=== PATIENT | female | born 1980 | race Hispanic/Latino ===

== ENCOUNTER 2017-06-23 14:18 | Inpatient (IN) | payer OTHER ==
[~2017-06-23] VITALS: Ht 154.9 cm; Wt 58.6 kg
[2017-06-23 15:50] LABS: BASO # 0.1 10^3/uL (0.0-0.2); BASO % 0.4 % (0.0-1.0); EOS # 0.5 10^3/uL (0.0-0.50); EOS % 3.7 % (0.0-3.0); IMMATURE GRANULOCYTE % 0.5 % (0-0); LYMPH # 1.6 10^3/uL (1.5-4.5); LYMPH % 11.5 % (24.0-44.0); MEAN CORPUSCULAR HEMOGLOBIN 30.2 pg (27.0-33.0); MEAN CORPUSCULAR HGB CONC 34.2 g/dl (32.0-36.5); MEAN CORPUSCULAR VOLUME 88.4 fl (80.0-96.0); MONO % 7.3 % (0.0-5.0); NEUTROPHILS # 10.8 10^3/uL (1.8-7.7); NEUTROPHILS % 76.6 % (36.0-66.0); PLATELET COUNT, AUTOMATED 344 10^3/uL (150-450); RED CELL DISTRIBUTION WIDTH 12.3 % (11.5-14.5); WHITE BLOOD COUNT 14.2 10^3/uL (4.0-10.0)
[2017-06-23 16:06] LABS: CONTROL LINE HCG INT CTR LINE PRESENT
[2017-06-23 16:14] LABS: ALKALINE PHOSPHATASE 136 U/L (45-117); ALT/SGPT 86 U/L (12-78); AMYLASE 63 U/L (25-115); ANION GAP 8 MEQ/L (8-16); AST/SGOT 84 U/L (7-37); BILIRUBIN,TOTAL 1.1 MG/DL (0.2-1.0); BLOOD UREA NITROGEN 10 MG/DL (7-18); CALCIUM LEVEL 9.3 MG/DL (8.5-10.1); CARBON DIOXIDE LEVEL 27 MEQ/L (21-32); CHLORIDE LEVEL 103 MEQ/L (98-107); CREATININE FOR GFR 0.75 MG/DL (0.55-1.02); GLOMERULAR FILTRATION RATE > 60.0 (>60); GLUCOSE, FASTING 116 MG/DL (70-105); POTASSIUM SERUM 4.2 MEQ/L (3.5-5.1); SODIUM LEVEL 138 MEQ/L (136-145)
--- NOTE | 2017-06-23 16:24 | REP ---
Clinical: Acute abdominal pain. Technique: Olvera scale ultrasound using curved array transducer. Findings: The gallbladder is contracted with at least two 9 mm gallstones and evidence for positive sonographic Guzman's sign with suggestions for minimal pericholecystic fluid. No biliary ductal dilatation is appreciated, and the common bile duct measures 5.0 mm diameter. The liver demonstrates fatty infiltration without focal hepatic lesion identified. The pancreas is normal in contour, size, and echogenicity without focal pancreatic lesion identified. The right kidney is normal in reniform shape without hydronephrosis and measures 11.4 x 5.4 x 5.0 cm. No ascites. Visualized portions of the abdominal aorta normal. Impression: 1. Sonographic findings suggestive of acute cholecystitis and correlation is recommended. 2. Fatty infiltration to the liver. Signed by Anup De La Rosa MD 06/23/2017 04:16 P
[2017-06-23 17:45] LABS: BILIRUBIN,DIRECT 0.2 MG/DL (0.0-0.2)
--- NOTE | 2017-06-23 17:46 | REP ---
Clinical: Right-sided abdominal pain and hematuria. Findings: Lung bases demonstrate minimal lingular atelectasis and a small 7 mm noncalcified nodular density in the right lower lobe (images 1 - 4). Liver, spleen, pancreas, bilateral adrenal glands and kidneys are normal. Specifically, no perinephric stranding, hydroureteronephrosis, intrarenal or obstructing ureteral calculi are identified. The gallbladder is unremarkable by CT evaluation. The enteric system is without obstruction or acute inflammatory process. Evidence for prior appendectomy noted. Sigmoid diverticula noted without acute diverticulitis. This demonstrates normal bladder and age-appropriate uterus/adnexa. No pelvic fluid or ascites. No free air. No significant adenopathy. Abdominal aorta without aneurysm. Musculoskeletal structures are intact. Impression: 1. Trace lingular atelectasis and 7 mm noncalcified nodular density in the right lower lobe warrants followup examination in 3-6 months. 2. No acute abdominopelvic pathology by CT evaluation. Specifically, normal appearance to the kidneys/ureters and bladder. Normal CT appearance to the gallbladder. 3. No ascites. No adenopathy. No obvious mass. Signed by Anup De La Rosa MD 06/23/2017 05:38 P
[2017-06-24] VITALS (8 sets, daily range): BP systolic 108–131; BP diastolic 62–77
[2017-06-24] MEDS ORDERED: MORPHINE 2 MG/ML 1ML SYRINGE IV PRN (01:15)
[2017-06-24] MEDS ORDERED: ACETAMINOPHEN TAB 650MG DOSE (2X325MG) PO PRN (01:15)
[2017-06-24] MEDS ORDERED: ONDANSETRON 4MG/2ML VIAL (J2405) IV PRN ×2 (01:15→15:45)
[2017-06-24] MEDS ORDERED: KETOROLAC 30 MG/ML VIAL (J1885) IV PRN (01:15)
[2017-06-24] MEDS ORDERED: LR 1,000 ML IV SCH ×2 (01:15→15:45)
--- NOTE | 2017-06-24 02:02 | HPE ---
DATE OF ADMISSION: 06/24/2017 ADMITTING DIAGNOSIS: Cholelithiasis with acute cholecystitis. HISTORY OF PRESENT ILLNESS: The patient is a pleasant 36-year-old woman who presented to the emergency department on the afternoon of 06/23. She arrived at approximately 1418. She presented complaining of some right flank pain that had started on the evening of the . She described that the pain started in the evening at about 2000 hours on the . She did not note any significant nausea or vomiting. During the course of the overnight hours, her pain was persistent and worsened in severity. She noted some movement of the pain into the right subcostal area. She noted increased pain with deep breath. She described a constant pain, but also occasional sharper pains. She presented to the emergency department and on evaluation was found to have some tenderness in the right subcostal area. She had laboratory studies that showed an elevation of her white blood cell count to 14,000 and had a gallbladder ultrasound obtained that showed multiple stones within a somewhat contracted gallbladder. She then had a CT scan of the abdomen and pelvis, which revealed evidence for a prior appendectomy. She had no evidence of renal stones. The gallbladder was unremarkable by CT evaluation. Incidentally noted was some mild lingular atelectasis and a 7 mm noncalcified nodular density in the right lower lobe. The patient had persistent pain and I was asked to evaluate the patient. Unfortunately, there were several urgent surgeries that took precedence and she was delayed in the emergency department for several hours until I had a chance to see her. In the interim, she has developed a low-grade temperature to 100.3 and has not had any resolution of her discomfort. She is now being admitted for management of her acute cholecystitis. ALLERGIES: The patient denies any known drug allergies. MEDICATIONS: The patient is on no medications routinely. SURGICAL HISTORY: Significant for an appendectomy. She has had a laparoscopy related to in vitro fertilization and she has had a section. MEDICAL HISTORY: Significant for a history of some gastroesophageal reflux. She reports that she used to take Nexium routinely, but this did not seem to relieve her symptoms adequately and now she just tries harder to avoid those foods that she knows will cause symptoms. She denies any heart, lung or endocrine problems. SOCIAL HISTORY: The patient is a nonsmoker and denies any significant alcohol use. FAMILY HISTORY: Reveals no history of cholelithiasis. REVIEW OF SYSTEMS: Reveals no history of chest pain or palpitations. She has had no dysuria or hematuria. She denies any history of jaundice, acholic stools, hepatitis or pancreatitis. She did report developing some left hip pain, which also began on the evening of the . She does use a treadmill for exercise, but has not had problems before. She has no history of deep venous thrombosis (DVT) or pulmonary embolus. There is no history of seizure, stroke or chronic severe headaches. Remainder of the review of systems is unremarkable. PHYSICAL EXAMINATION: Reveals a pleasant woman lying quietly on the emergency room (ER) stretcher. She is still wearing her clothes and is wearing her jacket because she feels cold. Her most recent vital signs show a temperature of 100.3 with a pulse of 92, respirations of 20 and a blood pressure of 130/78. Room air saturation is 100%. Sclerae are anicteric. Mucous membranes are moist. The skin is warm and dry. Neck is supple without mass or bruit. Heart exam shows a regular rate and rhythm. The lungs are clear. The abdomen is soft. She has some scarring consistent with her prior surgical procedures. She has bowel sounds present. The abdomen is nondistended. There is tenderness to percussion in the right subcostal area at about the midclavicular line. On palpation, there is no mass appreciated, but her point of maximum tenderness is in this right subcostal area, again at about the level of the midclavicular line. Her tenderness would seem to be moderate in severity. There is no sign of hernia. Extremities are without edema. LABORATORY STUDIES: Which are now 9 hours old showed a white count of 14,000 with a differential showing 77% neutrophils, 12% lymphocytes and 7 monocytes. Hemoglobin is 13 with a hematocrit of 39 and a platelet count is 344,000. Chemistry profile shows normal electrolytes with a BUN of 10, creatinine 0.7 and a glucose of 116. She does have slightly elevated liver function tests with a total bilirubin of 1.1, AST of 84, ALT of 86, and an alkaline phosphatase of 136. Amylase and lipase are normal and her HCG is negative. Her ultrasound and CT scan are as reported in the history of present illness. IMPRESSION: 1. Cholelithiasis with acute cholecystitis. 2. Mild liver function test abnormalities of unclear etiology. 3. History of gastroesophageal reflux. 4. History of infertility. 5. Small right lower lobe nodule incidentally noted on CT scan requiring followup. PLAN: The patient was counseled regarding the diagnosis of cholelithiasis and acute cholecystitis. I have recommended that she be admitted to the hospital for further treatment. She will be started on some intravenous (IV) fluid. She has not received any IV fluid for the last 9 hours, but has not been able to take any liquids either. She will receive a bolus on admission and then her IV rate will be reduced to maintenance levels. She will be started on Unasyn for IV antibiotic coverage. I will allow her to take a few sips of liquids as long as she is not nauseous and these will then be held early in the morning. I will add her to the operating room (OR) schedule for the as an add-on for a laparoscopic cholecystectomy. The timing of this will need to be worked out later in the day. She will be provided with analgesics and antiemetics as needed.
[2017-06-24] MEDS: AMPICILLIN SOD/SULBACTAM SOD 3 GM in D5W MINI-BAG PLUS 100 ML IV SCH ×3 (03:21→13:38)
[2017-06-24 07:08] LABS: BASO % 0.3 % (0.0-1.0); EOS # 0.5 10^3/uL (0.0-0.50); EOS % 3.8 % (0.0-3.0); IMMATURE GRANULOCYTE % 0.5 % (0-0); LYMPH # 1.5 10^3/uL (1.5-4.5); LYMPH % 11.5 % (24.0-44.0); MEAN CORPUSCULAR HEMOGLOBIN 29.9 pg (27.0-33.0); MEAN CORPUSCULAR HGB CONC 34.4 g/dl (32.0-36.5); MEAN CORPUSCULAR VOLUME 86.8 fl (80.0-96.0); MONO % 7.7 % (0.0-5.0); NEUTROPHILS # 10.2 10^3/uL (1.8-7.7); NEUTROPHILS % 76.2 % (36.0-66.0); PLATELET COUNT, AUTOMATED 304 10^3/uL (150-450); RED CELL DISTRIBUTION WIDTH 12.1 % (11.5-14.5); WHITE BLOOD COUNT 13.3 10^3/uL (4.0-10.0)
[2017-06-24 07:28] LABS: ALBUMIN 3.3 GM/DL (3.2-5.2); ALBUMIN/GLOBULIN RATIO 0.89 (1.00-1.93); ALKALINE PHOSPHATASE 104 U/L (45-117); ALT/SGPT 92 U/L (12-78); ANION GAP 8 MEQ/L (8-16); AST/SGOT 70 U/L (7-37); BILIRUBIN,DIRECT 0.2 MG/DL (0.0-0.2); BILIRUBIN,TOTAL 1.5 MG/DL (0.2-1.0); BLOOD UREA NITROGEN 8 MG/DL (7-18); CALCIUM LEVEL 8.8 MG/DL (8.5-10.1); CARBON DIOXIDE LEVEL 25 MEQ/L (21-32); CHLORIDE LEVEL 105 MEQ/L (98-107); CREATININE FOR GFR 0.65 MG/DL (0.55-1.02); GLOMERULAR FILTRATION RATE > 60.0 (>60); GLUCOSE, FASTING 102 MG/DL (70-105); SODIUM LEVEL 138 MEQ/L (136-145)
[2017-06-24] MEDS: LR 1,000 ML IV SCH ×3 (07:50→21:31)
[2017-06-24] MEDS ORDERED: BUPIVACAINE HCL 0.25% 30 ML VIAL As Ordered ONE (13:02)
[2017-06-24] MEDS ORDERED: SCOPOLAMINE 1.5 MG TRANSDERMAL As Ordered ONE (13:03)
[2017-06-24] MEDS ORDERED: UNASYN 1.5 GM VIAL As Ordered ONE (13:15)
[2017-06-24] MEDS ORDERED: SCOPOLAMINE 1.5 MG TRANSDERMAL TOP ONE (13:15)
[2017-06-24] MEDS ORDERED: ROCURONIUM BROMIDE 50 MG/5 ML VIAL As Ordered ONE (14:01)
[2017-06-24] MEDS ORDERED: PROPOFOL 200 MG/20 ML VIAL As Ordered ONE (14:01)
[2017-06-24] MEDS ORDERED: ONDANSETRON 4MG/2ML VIAL (J2405) As Ordered ONE (14:01)
[2017-06-24] MEDS ORDERED: fentaNYL 250 MCG/5 ML INJECTION (J3010) As Ordered ONE (14:01)
[2017-06-24] MEDS ORDERED: GLYCOPYRROLATE INJ 0.2 MG/ML 2 ML VIAL As Ordered ONE (14:01)
[2017-06-24] MEDS ORDERED: NEOSTIGMINE 10 MG/10 ML VIAL (J2710) As Ordered ONE (14:01)
[2017-06-24] MEDS ORDERED: dexameTHASONE 4 MG/ML 1ML VIAL (J1100) As Ordered ONE (14:01)
[2017-06-24] MEDS ORDERED: LIDOCAINE 2% INJ 100 MG/5 ML SDV (FOR ANES.) As Ordered ONE (14:01)
[2017-06-24] MEDS ORDERED: KETOROLAC 60 MG/2 ML VIAL (J1885) As Ordered ONE (14:01)
[2017-06-24] MEDS ORDERED: MIDAZOLAM INJ 2 MG/2 ML VIAL (J2250) As Ordered ONE (14:01)
[2017-06-24] MEDS ORDERED: METOCLOPRAMIDE INJ 10MG/2ML VIAL (J2765) As Ordered ONE (14:02)
[2017-06-24] MEDS ORDERED: HYDROmorphone HCL 2 MG/ML 1ML VIAL (J1170) As Ordered ONE (14:13)
[2017-06-24] MEDS ORDERED: NORCO, ANEXSIA 5/325MG TABLET (HYDROcodone/ACETAMINOPHEN) PO PRN (15:15)
[2017-06-24] MEDS ORDERED: PERCOCET 5MG/325MG TAB PO PRN (15:45)
[2017-06-24] MEDS ORDERED: fentaNYL 100 MCG/2 ML INJECTION (J3010) IV PRN (15:45)
--- NOTE | 2017-06-24 19:32 | RO ---
DATE OF PROCEDURE: 06/24/2017 PREOPERATIVE DIAGNOSIS: Acute cholecystitis. POSTOPERATIVE DIAGNOSIS: Cholelithiasis with chronic cholecystitis and possible mild gallbladder edema. PROCEDURE PERFORMED: Laparoscopic cholecystectomy. SURGEON: Dr. Dat Fermin ANESTHESIA: General. INDICATIONS FOR PROCEDURE: The patient is a 36-year-old woman who presented to the emergency department with a clinical picture and laboratory and imaging findings consistent with acute cholecystitis. She was admitted to the hospital and started on intravenous Unasyn. She is now for a laparoscopic cholecystectomy. DESCRIPTION OF PROCEDURE: The patient was placed under general endotracheal anesthesia. The patient's abdomen was prepped and draped in a sterile fashion. 0.25% Marcaine was infiltrated at each of the trocar sites. A short supraumbilical midline incision was made, and this was deepened through the subcutaneous tissues. The fascia was opened along the midline, and the peritoneum was opened bluntly. A Deric cannula was inserted, and the abdomen was insufflated with carbon dioxide gas. The laparoscope was placed. Initial examination showed a normal appearing liver. The gallbladder was readily seen and did not initially appear acutely inflamed. It was somewhat pale in color but seemed thin-walled. Visualized portions of the small and large bowel appeared normal. A 5 mm trocar was placed in the left upper quadrant and two 5 mm trocars were placed in the right upper quadrant. The patient was tilted to a reverse Trendelenburg position. The gallbladder was grasped and elevated. Dissection was begun in the area of the gallbladder neck. There was perhaps some mild edema in the pericholecystic tissues adjacent to the gallbladder neck. These tissues were opened by using cautery dissection. The common bile duct was identified with the cystic duct arising to the right and extending a short distance to the neck of the gallbladder. Medial to this the arterial branches to the gallbladder were identified. Initially the cystic duct was dissected free and was doubly clipped and divided. With further dissection, the artery branches were then out and clipped with hemoclips and divided. The gallbladder was removed from the gallbladder bed using cautery dissection. The gallbladder was not perforated in the course of dissection. The gallbladder was placed in an Endopouch. The right upper quadrant was irrigated and inspected. There was no evidence of bleeding or bile leak. The abdomen was deflated and the trocars were removed. The gallbladder was recovered through the Deric site. There were some stones palpable within the gallbladder. The peritoneum at the Deric site was closed with a single #2-0 Vicryl. The fascia was closed with interrupted simple sutures of #2-0 Vicryl, and the skin edges were all approximated with buried #5- 0 Vicryl and Steri-Strips. Light dressings were applied. The patient tolerated the procedure well without apparent complication. She was awakened in the operating room, extubated, and taken to the recovery room in stable condition. REGIS
[2017-06-25 02:00] VITALS: BP 117/67
[2017-06-25 06:00] VITALS: BP 114/61
[2017-06-25] MEDS: LR 1,000 ML IV SCH (08:11)
[2017-06-25 08:13] LABS: ALBUMIN 3.1 GM/DL (3.2-5.2); ALBUMIN/GLOBULIN RATIO 0.91 (1.00-1.93); ALKALINE PHOSPHATASE 107 U/L (45-117); ALT/SGPT 91 U/L (12-78); ANION GAP 10 MEQ/L (8-16); AST/SGOT 56 U/L (7-37); BLOOD UREA NITROGEN 7 MG/DL (7-18); CALCIUM LEVEL 9.1 MG/DL (8.5-10.1); CARBON DIOXIDE LEVEL 23 MEQ/L (21-32); CHLORIDE LEVEL 109 MEQ/L (98-107); CREATININE FOR GFR 0.61 MG/DL (0.55-1.02); GLOMERULAR FILTRATION RATE > 60.0 (>60); GLUCOSE, FASTING 107 MG/DL (70-105); SODIUM LEVEL 142 MEQ/L (136-145); TOTAL PROTEIN 6.5 GM/DL (6.4-8.2)
[2017-06-25] MEDS ORDERED: NORCOTAB PO ×2 (14:08→14:16)
--- NOTE | 2017-06-25 14:49 | IPN ---
DATE: 06/25/2017 HISTORY OF THIS HOSPITALIZATION: Patient is now postop day one from a laparoscopic cholecystectomy for acute cholecystitis. At surgery her gallbladder was found to be mildly edematous but not grossly inflamed so her antibiotics were not continued postop. Today she is feeling better though still with some soreness in the right subcostal area as might be expected. She denies any nausea or vomiting. She has been drinking well. Vital signs show she is afebrile with stable vitals. Intake and output shows 1940 in with 830 out yesterday and she had 2000 mL of urine output so far today. Physical exam reveals pleasant woman sitting up in the bed. She is alert and oriented. Heart exam shows a regular rhythm and the lungs are clear. The abdomen is mildly full but she has active bowel sounds. Her dressings are dry and the abdomen is without undue tenderness. LABORATORY DATA: She had repeat chemistry profile today that shows her total bilirubin is down to 1.0 which is normal. AST and ALT are both still slightly elevated at 56 and 91 and the alkaline phosphatase is normal. IMPRESSION: 1. Is doing well one day postop from a laparoscopic cholecystectomy. PLAN: The patient appears to be doing well enough for discharge. She will be sent home today. I will provide her a prescription for Morovis to take on an as-needed basis but she was encouraged to use Tylenol or Advil or other [id number] medications necessary for a lesser pain. She can shower today. 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 I want her to see me back in about 10 days in the office.
== END 2017-06-25 15:50 | disposition home or self-care (01) | DRG 419 ==
LOC: M ED 14:18 → M ED INP 06-24 01:15 → M MS5PR 06-24 02:55
PROVIDERS: ADMIT Surgery; ATTEND Surgery
PROC: 0FT44ZZ Resection of Gallbladder, Percutaneous Endoscopic Approach (ICD-10-PCS; principal; 2017-06-24 13:19)
DX: K80.62 Calculus of gallbladder and bile duct with acute cholecystitis without obstruction (principal); K21.9 Gastro-esophageal reflux disease without esophagitis; R91.1 Solitary pulmonary nodule; N97.9 Female infertility, unspecified

== ENCOUNTER 2017-06-28 14:33 | Emergency (ER) | payer OTHER, BC ==
[~2017-06-28] VITALS: Ht 154.9 cm; Wt 61.4 kg
[~2017-06-28 14:33] MED LIST: NORCOTAB PO
[2017-06-28] MEDS ORDERED: ALBUTEROL SULFATE 2.5 MG/0.5 ML INH NEB SOLN NEB ONE (16:30)
--- NOTE | 2017-06-28 17:05 | REP ---
Chest two views HISTORY: Shortness of breath Comparison: None Linear densities are present in the left lower lobe consistent with atelectasis or scar. The right lung is clear. The heart is normal in size. The pulmonary vasculature is normal in appearance. The bony structure is intact. IMPRESSION: Left lower lobe atelectasis or scar. Signed by David Morgan MD 06/28/2017 04:57 P
[2017-06-28 17:08] LABS: BASO # 0.1 10^3/uL (0.0-0.2); BASO % 0.4 % (0.0-1.0); EOS # 0.7 10^3/uL (0.0-0.50); EOS % 4.7 % (0.0-3.0); IMMATURE GRANULOCYTE % 1.3 % (0-0); LYMPH # 2.7 10^3/uL (1.5-4.5); LYMPH % 19.4 % (24.0-44.0); MEAN CORPUSCULAR HEMOGLOBIN 29.6 pg (27.0-33.0); MEAN CORPUSCULAR HGB CONC 34.2 g/dl (32.0-36.5); MEAN CORPUSCULAR VOLUME 86.7 fl (80.0-96.0); MONO # 0.6 10^3/uL (0.0-0.8); MONO % 4.3 % (0.0-5.0); NEUTROPHILS # 9.8 10^3/uL (1.8-7.7); NEUTROPHILS % 69.9 % (36.0-66.0); PLATELET COUNT, AUTOMATED 478 10^3/uL (150-450)
[2017-06-28 17:28] LABS: ANION GAP 9 MEQ/L (8-16); BLOOD UREA NITROGEN 11 MG/DL (7-18); CALCIUM LEVEL 9.9 MG/DL (8.5-10.1); CARBON DIOXIDE LEVEL 28 MEQ/L (21-32); CHLORIDE LEVEL 101 MEQ/L (98-107); CREATININE FOR GFR 0.72 MG/DL (0.55-1.02); GLOMERULAR FILTRATION RATE > 60.0 (>60); GLUCOSE, FASTING 95 MG/DL (70-105); POTASSIUM SERUM 3.8 MEQ/L (3.5-5.1); SODIUM LEVEL 138 MEQ/L (136-145)
[2017-06-28] MEDS ORDERED: ISOVUE-370 76% 100ML VIAL (Q9967) As Ordered ONE (17:47)
[2017-06-28 18:28] VITALS: O2SAT 98
--- NOTE | 2017-06-28 18:36 | REP ---
CT ANGIO CHEST: HISTORY: Shortness of breath. CONTRAST: Isovue-370 100 mL. There are no filling defects in the main , right and left pulmonary arteries or their branches. Area of atelectasis or infiltrate are present in the lower lobes and left upper lobe. A 5 mm parenchymal nodule is present in the right upper lobe seen on image 26. A 5 mm parenchymal nodule is present in the right lower lobe seen in image #43. Small bilateral pleural effusions are present. The heart is normal in size. There is no mediastinal mass. The patient is status-post cholecystectomy. IMPRESSION: 1. There is no pulmonary embolism. 2. Bibasilar and left lower lobe atelectasis or infiltrate. 3. Small bilateral pleural effusions. 4. There are two 5 mm parenchymal nodules in the right upper and lower lobes. Signed by David Morgan MD 06/28/2017 06:56 P
[2017-06-28] MEDS ORDERED: ZITHTAB PO ×2 (18:42→18:48)
[2017-06-28] MEDS ORDERED: VENTAER INH ×2 (18:42→18:48)
[2017-06-28 18:48] VITALS: BP 112/64
== END 2017-06-28 18:51 | disposition home or self-care (01) ==
LOC: M ED 14:33
DX: J18.9 Pneumonia, unspecified organism (principal); R91.8 Other nonspecific abnormal finding of lung field
CPT/HCPCS: 71020; 71275; 80048; 85025; 85379; 94640; 99284; Q9967

== ENCOUNTER → 2018-05-26 | Outpatient (REF) | payer OTHER, BC ==
[2018-05-26 12:18] LABS: PROGESTERONE 0.3 NG/ML
[2018-05-26 12:18] LABS: ESTRADIOL 182.7 PG/ML; LUTEINIZING HORMONE 0.8 mIU/mL
== END ==
LOC: M LABDRAW1 11:30
DX: E28.9 Ovarian dysfunction, unspecified (principal)

== ENCOUNTER → 2018-05-28 | Outpatient (REF) | payer OTHER ==
[2018-05-28 11:46] LABS: ESTRADIOL 454.3 PG/ML; LUTEINIZING HORMONE 1.2 mIU/mL
[2018-05-28 11:46] LABS: PROGESTERONE < 0.2 NG/ML
== END ==
LOC: M LABDRAW1 10:23
DX: E28.9 Ovarian dysfunction, unspecified (principal)

== ENCOUNTER 2018-06-09 10:02 | Outpatient (CLI) | payer OTHER | END 2018-06-13 | LOC: M RAD 10:02 | DX: Z12.39 Encounter for other screening for malignant neoplasm of breast (principal); N63.21 Unspecified lump in the left breast, upper outer quadrant | CPT/HCPCS: 77065 ==

== ENCOUNTER 2018-08-25 13:41 | Emergency (ER) | payer OTHER ==
[~2018-08-25] VITALS: Ht 154.9 cm; Wt 63.6 kg
[~2018-08-25 13:41] MED LIST changes: +VENTAER INH; +ZITHTAB PO
[2018-08-25 13:42] VITALS: BP 144/67
[2018-08-25] MEDS ORDERED: LEUP1INJ4 (13:53)
[2018-08-25] MEDS ORDERED: [UNRECOGNIZED DRUG - CODE] (13:53)
--- NOTE | 2018-08-25 14:20 | REP ---
Clinical: Trauma/fall . Comparison: None . Findings: The ventricles, sulci, and cisterns are normal in position and appearance. Olvera-white differentiation is maintained. No acute intracranial hemorrhage, mass/mass effect, pathology or trauma/injury. No evidence for acute infarction. No extra-axial fluid collection. Calvarium is intact. Paranasal sinuses and mastoid air cells are clear. Impression: Normal noncontrast head CT. No evidence for acute intracranial pathology or trauma/injury. Electronically Signed by Anup De La Rosa MD 08/25/2018 02:12 P
[2018-08-25] MEDS ORDERED: REGL10TA6 PO (17:30)
== END 2018-08-25 17:35 | disposition home or self-care (01) ==
LOC: M ED 13:41
DX: S09.90XA Unspecified injury of head, initial encounter (principal); W19.XXXA Unspecified fall, initial encounter; Y92.89 Other specified places as the place of occurrence of the external cause; Y93.9 Activity, unspecified; Y99.9 Unspecified external cause status; Z79.899 Other long term (current) drug therapy

== ENCOUNTER → 2018-11-17 | Outpatient (CLI) | payer OTHER ==
[~2018-11-17] MED LIST changes: +HYDR-3715 PO; +LEUP1INJ4; -NORCOTAB PO; +REGL10TA6 PO; +[UNRECOGNIZED DRUG - CODE]
--- NOTE | 2018-11-18 00:40 | ECGEPIP ---
Stationary ECG Study 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
== END ==
LOC: M EKG 15:22
PROVIDERS: ATTEND Obstetrics & Gynecology
DX: O24.111 Pre-existing type 2 diabetes mellitus, in pregnancy, first trimester (principal); Z3A.11 11 weeks gestation of pregnancy

== ENCOUNTER 2019-05-07 16:01 | Outpatient (CLI) | payer OTHER ==
[~2019-05-07] VITALS: Ht 154.9 cm; Wt 69.7 kg
[2019-05-07] VITALS (16 sets, daily range): BP systolic 126–182; BP diastolic 76–90
[2019-05-07] MEDS ORDERED: NOVOINJ12 SC (16:35)
[2019-05-07] MEDS ORDERED: PRENTAB9 PO (16:35)
[2019-05-07] MEDS ORDERED: INSUN SC (16:35)
[2019-05-07 17:02] LABS: HEMATOCRIT 32.8 % (36.0-47.0); MEAN CORPUSCULAR HEMOGLOBIN 30.1 pg (27.0-33.0); MEAN CORPUSCULAR HGB CONC 33.5 g/dl (32.0-36.5); MEAN CORPUSCULAR VOLUME 89.6 fl (80.0-96.0); PLATELET COUNT, AUTOMATED 211 10^3/uL (150-450); RED BLOOD COUNT 3.66 10^6/uL (4.00-5.40); WHITE BLOOD COUNT 13.4 10^3/uL (4.0-10.0)
[2019-05-07 17:10] LABS: APPEARANCE, URINE CLEAR (CLEAR); BACTERIA, URINE AUTO 2+ (NEGATIVE); BILIRUBIN, URINE AUTO NEGATIVE (NEGATIVE); BLOOD, URINE BLOOD 1+ (NEGATIVE); COLOR, URINE STRAW (YELLOW); GLUCOSE, URINE (UA) AUTO NEGATIVE (NEGATIVE); KETONE, URINE AUTO NEGATIVE (NEGATIVE); LEUKOCYTE ESTERASE, URINE AUTO 1+ (NEGATIVE); NITRITE, URINE AUTO NEGATIVE (NEGATIVE); PROTEIN, URINE AUTO NEGATIVE (NEGATIVE); RBC, URINE AUTO 1 /HPF (0-3); SPECIFIC GRAVITY URINE AUTO 1.003 (1.002-1.035); SQUAMOUS EPITHELIAL CELL UR AU 2 /HPF (0-6); UROBILINOGEN, URINE AUTO 0.2 mg/dL (0.0-2.0); WBC, URINE AUTO 8 /HPF (0-3)
[2019-05-07 17:17] LABS: ALT/SGPT 14 U/L (12-78); BILIRUBIN,TOTAL 0.8 MG/DL (0.2-1.0); CREATININE FOR GFR 0.65 MG/DL (0.55-1.30); GLOMERULAR FILTRATION RATE > 60.0 (>60); LDH LACTATE DEHYDROGENASE 196 U/L (84-246); URIC ACID 4.1 MG/DL (2.6-6.0)
[2019-05-07 17:28] LABS: TOTAL PROTEIN,RANDOM URINE 8.5 MG/DL (0.0-12.0)
--- NOTE | 2019-05-07 20:35 | IPNPDOC ---
Text Note Date of Service The patient was seen on 05/07/19. NOTE Patient is a 38 yo @35+4wks gestation present for BP monitoring. She ruled in for GHTN in the clinic today. Denies CRAWFORD/N/V/Change in vision. patient has been having contractions for the past couple of weeks with serial cervical check without change. Today she reports contractions have lessen in intensity. vitals: mild to moderate range with occasional 160's systolic BP. NAD fht: 135/mod eli/pos accel/no decel toco: ctx q 5 mins labs reviewed: spot urine: 0.4 a/p patient is @35+4wks ruled in for pre-eclampsia without severe feature at this time. Discussed with patient return precautions. patient to collect 24hr urine protein, bring it back to l&d and get repeat BP check. Scheduled for repeat section at 37+1wks on 22Oct. Le, DO VS,Fishbone, I+O VS, Fishbone, I+O Laboratory Tests 2 05/07/19 16:35: Nucleated Red Blood Cells % (auto) 0.0, Glomerular Filtration Rate > 60.0, Creatinine 0.65, Aspartate Amino Transf (AST/SGOT) 18, Alanine Aminotransferase (ALT/SGPT) 14, Lactate Dehydrogenase 196, Total Bilirubin 0.8, Uric Acid 4.1 05/07/19 16:42: Urine Random Creatinine 21.0, Urine Random Total Protein 8.5 05/07/19 16:44: Urine Appearance CLEAR, Urine Color STRAW, Urine pH 7.0, Urine Specific Ursa 1.003, Urine Protein NEGATIVE, Urine Glucose (UA) NEGATIVE, Urine Ketones NEGATIVE, Urine Urobilinogen 0.2, Urine Bilirubin NEGATIVE, Urine Leukocyte Esterase 1+H, Urine Blood 1+H, Urine Nitrite NEGATIVE, Urine WBC (Auto) 8H, Urine RBC (Auto) 1, Urine Hyaline Casts (Auto) 0, Urine Bacteria (Auto) 2+H, Urine Squamous Epithelial Cells 2, Urine Sperm (Auto) Laboratory Tests 05/07/19 16:35 Red Blood Count 3.66 L, Mean Corpuscular Volume 89.6, Mean Corpuscular Hemoglobin 30.1, Mean Corpuscular Hemoglobin Concent 33.5, Red Cell Distribution Width 13.3, Aspartate Amino Transf (AST/SGOT) 18, Alanine Aminotransferase (ALT/SGPT) 14, Lactate Dehydrogenase 196, Total Bilirubin 0.8, Uric Acid 4.1 Vital Signs Date Time Temp Pulse Resp B/P (MAP) Pulse Ox O2 Delivery O2 Flow Rate FiO2 05/07/19 19:33 65 157/85 (109) 05/07/19 17:07 18 05/07/19 16:23 98.1 NEWTON TRONCOSO DO May 07, 2019 20:35
== END 2019-05-07 20:30 | disposition home or self-care (01) ==
LOC: M LDO 16:01
PROVIDERS: ATTEND Obstetrics & Gynecology
DX: O26.893 Other specified pregnancy related conditions, third trimester (principal); Z3A.35 35 weeks gestation of pregnancy
CPT/HCPCS: 36415; 59025; 81001; 82247; 82565; 82570; 83615; 84156; 84450; 84460; 84550; 85027; 87081; G0378; G0463

== ENCOUNTER 2019-05-08 14:39 | Inpatient (IN) | payer OTHER ==
[~2019-05-08] VITALS: Ht 154.9 cm; Wt 66.7 kg
[2019-05-08] VITALS (13 sets, daily range): BP systolic 136–169; BP diastolic 70–95
[~2019-05-08 14:39] MED LIST changes: +INSUN SC; +NOVOINJ12 SC; +PRENTAB9 PO
[2019-05-08] MEDS ORDERED: LR 1,000 ML IV SCH (16:13)
[2019-05-08] MEDS ORDERED: ceFAZolin SOD 2 GM in IV 1 EA IV STA (16:13)
[2019-05-08] MEDS ORDERED: LACTATED RINGER'S 1000 ML IV ONE (16:15)
[2019-05-08] MEDS ORDERED: BICITRA 30ML SOLN UDC PO ONE (16:15)
[2019-05-08] MEDS ORDERED: ACETAMINOPHEN 650 MG SUPP PR SCH (16:30)
[2019-05-08] MEDS ORDERED: BUPIVACAINE HCL 0.25% 10 ML VIAL SC ONE (16:30)
[2019-05-08] MEDS ORDERED: AZITHROMYCIN SUSP 200MG/5ML 30ML BOTTLE (FOR INPATIENT ORDERS) XX SCH (16:30)
[2019-05-08 16:52] LABS: HEMATOCRIT 33.3 % (36.0-47.0); HEMOGLOBIN 11.6 g/dl (12.0-15.5); MEAN CORPUSCULAR HEMOGLOBIN 30.9 pg (27.0-33.0); MEAN CORPUSCULAR HGB CONC 34.8 g/dl (32.0-36.5); MEAN CORPUSCULAR VOLUME 88.8 fl (80.0-96.0); PLATELET COUNT, AUTOMATED 195 10^3/uL (150-450); RED BLOOD COUNT 3.75 10^6/uL (4.00-5.40); WHITE BLOOD COUNT 13.4 10^3/uL (4.0-10.0)
[2019-05-08] MEDS ORDERED: SODIUM CHLORIDE 0.9% 1000ML IV ONE (17:00)
--- NOTE | 2019-05-08 17:32 | HPE ---
DATE OF ADMISSION: 05/08/2019 A 38-year-old 4, para 1, abortio 1, last menstrual period (LMP) 09/01/2018, estimated date of confinement (EDC) 06/06/2019 at 35 and 6 weeks of gestation with an admission of active labor, , preeclampsia, AGDM 2, on insulin, class B diabetic, in-vitro fertilization (IVF), previous section, herpes simplex virus (HSV) positive. PAST HISTORY: In 2018 at 8 weeks, spontaneous . In 2014 at 38 weeks and 2 days, primary lower transverse section. Had diamniotic-dichorionic (di-di) twins, one as an intrauterine demise (IUFD) at 21 weeks because of a cystic hygroma, and she had a primary lower transverse section because of gestational hypertension, active HSV lesions, and AGDM 2, on metformin. Presently, she is on metformin NPH 18 at breakfast and NovoLog 10, dinner 8 units, and at bedtime 8 units of NPH. She is not taking her metformin presently. Her labs are O positive, HIV negative, hepatitis negative, RPR negative, rubella immune, Varicella immune. Pap normal. Urine negative. Gonorrhea and chlamydia are negative. One-hour glucose was 66, 28-week glucose was 145. She then had a 3-hour GTT, of which her fasting was 94, 1-hour was 161, 2-hour was 209, and 3-hour was 196. She was seen yesterday for midrange to elevated blood pressures. Had a 24-hour urine collection started. Had a pre-eclamptic profile. Significant was protein/creatinine ratio was 0.40, uric acid was 4.1. The rest the examination was unremarkable except for her midrange blood pressures. She comes in today with contractions and elevated blood pressure of 158/91, 65/85. Denies a headache, right upper quadrant pain, or visual disturbances. She has also had some vaginal bleeding. She has a category 1 strip. On examination, symphysis fundus height is 36. Four-quadrant bowel sounds are noted. Previous section scar is intact and no pain. On pelvic examination, she has moderate show, 3-4 cm, -3 station, 80% effaced, and is anterior. Her respirations are 18, pulse is 64, and temperature is 98.6. Her present blood pressure is 165/85; repeat was 185/95. We discussed doing a repeat section presently, because she is heading toward an eclamptic episode, and preventative is better than intervention after a seizure disorder. We discussed risks and benefits of doing the section now, including hemorrhage, infection, perforation of organs, , reoperation, remote possibility of blood transfusion, remote possibility of hysterectomy, remote possibility of laceration, and admission to intensive care unit (NICU) because of prematurity. The patient expressed understanding of same and has agreed to continue on with the plan of care. We spent about 50 minutes in discussion. Both the patient and agree with the plan of management.
[2019-05-08] MEDS ORDERED: NS 1,000 ML IV SCH (18:00)
[2019-05-08] MEDS ORDERED: ONDANSETRON 4MG/2ML VIAL (J2405) As Ordered ONE ×2 (20:10→23:34)
[2019-05-08] MEDS ORDERED: MORPHINE PRES-FREE INJ 10 MG/10 ML VIAL (J2274) As Ordered ONE (20:10)
[2019-05-08] MEDS ORDERED: OXYTOCIN INJ 10 UNITS/ML VIAL (J2590) As Ordered ONE (20:10)
[2019-05-08] MEDS ORDERED: KETOROLAC 60 MG/2 ML VIAL (J1885) As Ordered ONE (20:10)
[2019-05-08] MEDS ORDERED: AZITHROMYCIN INJ 500 MG, VIAL MATE ADAPTER 1 EACH in D5W 250 ML IV SCH (20:45)
[2019-05-08] MEDS ORDERED: ACETAMINOPHEN 650 MG SUPP PR ONE (21:00)
[2019-05-08] MEDS ORDERED: diphenhydrAMINE INJ 50MG/ML VIAL (J1200) IV PRN (21:46)
[2019-05-08] MEDS ORDERED: ONDANSETRON 4MG/2ML VIAL (J2405) IV PRN ×2 (21:46→23:30)
[2019-05-08] MEDS ORDERED: METOCLOPRAMIDE INJ 10MG/2ML VIAL (J2765) IV PRN (21:46)
[2019-05-08] MEDS ORDERED: NALOXONE INJ 0.4 MG/1 ML VIAL (J2310) IV PRN ×2 (21:46)
[2019-05-08] MEDS ORDERED: NALBUPHINE HCL 10 MG/ML AMP (J2300) IV PRN ×2 (21:46→23:30)
[2019-05-08] MEDS ORDERED: KETAMINE HCL 200 MG/20 ML VIAL As Ordered ONE (22:03)
[2019-05-08] MEDS ORDERED: fentaNYL 100 MCG/2 ML INJECTION (J3010) As Ordered ONE ×2 (22:21→23:31)
[2019-05-08] MEDS ORDERED: ROCURONIUM BROMIDE 50 MG/5 ML VIAL As Ordered ONE (22:34)
[2019-05-08] MEDS ORDERED: LIDOCAINE 2% INJ 100 MG/5 ML SDV (FOR ANES.) As Ordered ONE (22:34)
[2019-05-08] MEDS ORDERED: PROPOFOL 200 MG/20 ML VIAL As Ordered ONE (22:34)
[2019-05-08 22:35] LABS: CORD GAS ABE A -2.5; CORD GAS HCO3 A 25.8 MEQ/L; CORD GAS O2 SAT A 47.2 %; CORD GAS PH A 7.252 UNITS; CORD GAS PO2 A 21.6 mmHg; CORD GAS SBC A 21.2 MEQ/L; CORD GAS TCO2 A 27.7 MEQ/L
[2019-05-08] MEDS ORDERED: SUGAMMADEX SODIUM 500 MG/5 ML VIAL (BRIDION) As Ordered ONE (22:35)
[2019-05-08 22:36] LABS: CORD GAS ABE V -4.5; CORD GAS HCO3 V 21.5 MEQ/L; CORD GAS PCO2 V 43.2 mmHg; CORD GAS PH V 7.315 UNITS; CORD GAS PO2 V 52.7 mmHg; CORD GAS SBC V 20.6 MEQ/L; CORD GAS TCO2 V 22.8 MEQ/L
[2019-05-08] MEDS ORDERED: DOCUSATE SODIUM 100 MG CAP PO PRN (23:15)
[2019-05-08] MEDS ORDERED: RHOGAM 300 MCG (1500 IU) INJ (J2790) IM SCH (23:15)
[2019-05-08] MEDS ORDERED: METHYLERGONOVINE MALEATE 0.2 MG TAB PO PRN (23:15)
[2019-05-08] MEDS ORDERED: OXYTOCIN INJ 10 UNITS/ML VIAL (J2590) IV ONE (23:15)
[2019-05-08] MEDS ORDERED: OXYTOCIN DRIP 30 UNITS in IV 1 EA IV ONE (23:15)
[2019-05-08] MEDS ORDERED: PERCOCET 5MG/325MG TAB PO PRN ×3 (23:15→23:30)
[2019-05-08] MEDS ORDERED: MEASLES,MUMPS,RUBELLA VACCINE INJ (MMR-II) (90707) SC SCH (23:15)
[2019-05-08] MEDS ORDERED: ANUSOL HC CREAM 30GM TOP PRN (23:15)
[2019-05-08] MEDS ORDERED: MOM 30ML SUSPENSION UDC PO PRN (23:15)
[2019-05-08] MEDS: fentaNYL 100 MCG/2 ML INJECTION (J3010) IV PRN ×2 (23:25→23:31)
[2019-05-08] MEDS ORDERED: MEPERIDINE INJ 25 MG/ML VIAL (J2175) IV PRN (23:30)
[2019-05-08] MEDS ORDERED: HYDROMORPHONE HCL 0.5 MG/ 0.5 ML SYRINGE (J1170 PER 1) IV PRN (23:30)
[2019-05-08] MEDS ORDERED: PERCOCET 5MG/325MG TAB As Ordered ONE (23:31)
[2019-05-08] MEDS ORDERED: OXYTOCIN 30 UNITS IN 0.9% NaCl 500ML IV BAG (J2590) As Ordered ONE (23:43)
[2019-05-09] VITALS (8 sets, daily range): BP systolic 121–155; BP diastolic 64–81
[2019-05-09] MEDS ORDERED: UNRESOLVED CLARIFICATION ENTRY XX SCH (00:01)
[2019-05-09] MEDS ORDERED: NS 1,000 ML IV SCH (01:30)
[2019-05-09] MEDS ORDERED: KETOROLAC 30 MG/ML VIAL (J1885) IV SCH (02:00)
[2019-05-09] MEDS: KETOROLAC 30 MG/ML VIAL (J1885) IV SCH ×3 (03:58→15:56)
[2019-05-09 06:56] LABS: HEMATOCRIT 29.5 % (36.0-47.0); HEMOGLOBIN 10.1 g/dl (12.0-15.5); MEAN CORPUSCULAR HGB CONC 34.2 g/dl (32.0-36.5); MEAN CORPUSCULAR VOLUME 90.5 fl (80.0-96.0); PLATELET COUNT, AUTOMATED 160 10^3/uL (150-450); RED BLOOD COUNT 3.26 10^6/uL (4.00-5.40); WHITE BLOOD COUNT 16.5 10^3/uL (4.0-10.0)
[2019-05-09 07:08] LABS: GLUCOSE, FASTING 65 MG/DL (70-100)
[2019-05-09] MEDS ORDERED: GLUCAGON FOR INJ 1 MG VIAL (J1610) SC PRN (09:45)
[2019-05-09] MEDS ORDERED: DEXTROSE 50% 50 ML SYRINGE IV PRN (09:45)
[2019-05-09] MEDS ORDERED: GLUCOSE 4 GM CHEW TABLET PO PRN (09:45)
--- NOTE | 2019-05-09 10:02 | IPNPDOC ---
Text Note Date of Service The patient was seen on 05/09/19. NOTE OB Considerations: Advanced Maternal Age IVF GDMA2 on insulin HSV+ Pre-eclampsia without severe features Ms. [place] is a 38y/o POD#1 s/p RLTCS at 2200 on [id number] at 35+6 wks. Patient was previously diagnosed with pre-eclampsia without severe features ba sed on mild range BPs P:C ratio of 0.4. Upon presentation to L&D, she was in labor with intermittent severe range BPs, not requiring antihypertensives. She denied CRAWFORD/visual changes or RUQ pain. She also had a right eye hemorrhage. Given her labor in the setting of prior , she was admitted and underwent uncomplicated RLTCS. This morning, she is doing well and without co mplaints. She reports pain is well controlled, she is ambulating without lightheadedness, lochia is diminishing and she is tolerating regular diet. She denies CRAWFORD/visual changes/RUQ pain. PE: VS reviewed. BPs mild range in the 140s to low 150 systolic. Non tachycardic, afebrile. General - Alert and oriented x3 HEENT - popped blood vessel in right eye Resp - CTAB, no crackles, wheezes or rhonchi CV - RRR, no murmurs, rubs or gallops Abd - Soft, NT/ND, U-1. Incision with telfa in place with no strike through. Ext - No edema, erythema or calf tenderness HCT: 33.3 -> 29.5 Platelets 195 -> 160 No CMP this admission UOP: 0.22 ml/kg/hr (only 45cc out the last 3 hours) A/p: 38y/o POD#1 s/p RLTCS @ 35+6 wks with pre-eclampsia without severe features -Will repeat CMP this morning given none performed this admission and now with decreasing urine output -Continue to monitor blood pressures: will start magnesium and give antihypertensives for persistent severe range BPS. Otherwise, will consider oral medications if persistently >150/100s -Encourage hydration, ambulation, breast feeding, IS use -Will keep Ware catheter in place for now given decreased urine output -GDMA2 - will need 2 hour glucose test at 6 weeks -Support breast feeding -Opos, Rubella immune -Contraception: Will discuss prior to discharge VS,Fishbone, I+O VS, Fishbone, I+O Laboratory Tests 05/08/19 16:38 Red Blood Count 3.75 L, Mean Corpuscular Volume 88.8, Mean Corpuscular Hemoglobin 30.9, Mean Corpuscular Hemoglobin Concent 34.8, Red Cell Distribution Width 13.2 05/09/19 06:14 Red Blood Count 3.26 L, Mean Corpuscular Volume 90.5, Mean Corpuscular Hemoglobin 31.0, Mean Corpuscular Hemoglobin Concent 34.2, Red Cell Distribution Width 13.2 Vital Signs Date Time Temp Pulse Resp B/P (MAP) Pulse Ox O2 Delivery O2 Flow Rate FiO2 05/09/19 05:36 97.2 68 18 121/64 (83) 95 05/09/19 01:00 1.0 I&O- Last 24 Hours up to 6 AM 05/09/19 06:00 Intake Total 3740 ml Output Total 775 ml Balance 2965 ml Rosy Gottlieb MD May 09, 2019 10:02
[2019-05-09] MEDS: PRENATAL VITAMINS CHEWABLE TABLET PO SCH (10:24)
[2019-05-09 10:36] LABS: ALT/SGPT 11 U/L (12-78); BILIRUBIN,TOTAL 0.7 MG/DL (0.2-1.0); BLOOD UREA NITROGEN 9 MG/DL (7-18); CALCIUM LEVEL 7.8 MG/DL (8.5-10.1); CARBON DIOXIDE LEVEL 17 MEQ/L (21-32); CHLORIDE LEVEL 113 MEQ/L (98-107); CREATININE FOR GFR 0.67 MG/DL (0.55-1.30); GLOMERULAR FILTRATION RATE > 60.0 (>60); SODIUM LEVEL 140 MEQ/L (136-145); TOTAL PROTEIN 4.8 GM/DL (6.4-8.2)
[2019-05-09] MEDS ORDERED: HumaLOG INSULIN (NovoLOG) PER UNIT SC SCH (12:00)
[2019-05-09] MEDS: IBUPROFEN 800 MG TAB PO PRN (21:04)
[2019-05-09] MEDS: CEPACOL LOZENGE PO PRN ×2 (21:04→22:28)
[2019-05-09] MEDS ORDERED: IBUPROFEN 600 MG TAB PO PRN (22:00)
[2019-05-10 02:21] VITALS: BP 128/67
[2019-05-10] MEDS: ACETAMINOPHEN 500 MG TAB PO PRN ×2 (03:47→20:13)
[2019-05-10 06:17] VITALS: BP 136/74
[2019-05-10] MEDS: IBUPROFEN 800 MG TAB PO PRN ×2 (08:05→14:55)
[2019-05-10] MEDS: PRENATAL VITAMINS CHEWABLE TABLET PO SCH (08:05)
--- NOTE | 2019-05-10 09:10 | IPNPDOC ---
Text Note Date of Service The patient was seen on 05/10/19. NOTE OB Considerations: Advanced Maternal Age IVF GDMA2 on insulin HSV+ Pre-eclampsia without severe features Ms. Birmingham is a 38y/o POD#2 s/p RLTCS at 2200 on [id number] at 35+6 wks. Patient was previously diagnosed with pre-eclampsia without severe features based on mild range BPs P:C ratio of 0.4. Upon presentation to L&D, she was in labor with intermittent severe range BPs, not requiring antihypertensives. She denied CRAWFORD/visual changes or RUQ pain. She also had a right eye hemorrhage. Given her labor in the setting of prior , she was admitted and underwent uncomplicated RLTCS. This morning, she is doing well and without complaints. She reports pain is well controlled, she is ambulating without lightheadedness, lochia is diminishing and she is tolerating regular diet. She denies visual changes/RUQ pain. Reports mild headache for which she just took Motrin. PE: VS reviewed. BPs mild range, systolics 140s. Non tachycardic, afebrile. General - Alert and oriented x3 HEENT - popped blood vessel in right eye Resp - Non labored breathing CV - well perfused Abd - Soft, NT/ND, U-2. Incision clean, dry, intact Ext - No edema, erythema or calf tenderness HCT: 33.3 -> 29.5 A/p: 38y/o POD#2 s/p RLTCS @ 35+6 wks with pre-eclampsia without severe features -Continue to monitor blood pressures: will start magnesium and give antihypertensives for persistent severe range BPS. Otherwise, will consider oral medications if persistently >150/100s -Encourage hydration, ambulation, breast feeding, IS use -GDMA2 - will need 2 hour glucose test at 6 weeks -Support breast feeding -Opos, Rubella immune -Contraception: Patient unsure, IVF . Discussed possibility of spontaneous even in the setting of infertility. Considering IUD. VS,Fishbone, I+O VS, Fishbone, I+O Vital Signs Date Time Temp Pulse Resp B/P (MAP) Pulse Ox O2 Delivery O2 Flow Rate FiO2 05/10/19 06:17 97.5 73 18 136/74 (94) 05/09/19 05:36 95 05/09/19 01:00 1.0 I&O- Last 24 Hours up to 6 AM 05/10/19 06:00 Output Total 1250 ml Balance -1250 ml Rosy Gottlieb MD May 10, 2019 09:10
[2019-05-10] MEDS: CEPACOL LOZENGE PO PRN (14:55)
[2019-05-10 18:00] VITALS: BP 137/68
[2019-05-11] MEDS: IBUPROFEN 800 MG TAB PO PRN (04:13)
[2019-05-11 06:08] VITALS: BP 150/65
--- NOTE | 2019-05-11 07:05 | RO ---
DATE OF PROCEDURE: 05/08/2019 This lady is a 38-year-old 4, para 1 who was admitted at 35 and 6 weeks of gestation with a history of preeclampsia, gestational hypertension, active labor and having a previous section. Her risk factors is that she has an AMA, she is an AGDM2 on insulin, preeclamptic, previous section, IVF and HSV2 positive. OPERATION PROPOSED: Repeat section. OPERATION PERFORMED: Repeat section. ANESTHESIA: Originally was spinal which did not work and therefore she had a general anesthetic plus local anesthetic for intraperitoneal procedures. ESTIMATED BLOOD LOSS: 400 mL. SURGEON: Ta Grady MD HUMAN RESOURCES ADVISOR: Dr. Wagner Jaramillo for retraction, extraction, visualization. After appropriate anesthesia, prepped and draped in the supine position, Ware catheter in the bladder draining clear urine, acetaminophen suppository 1300 mg per rectum, sequentials in place and antibiotics appropriately preoperatively, a Pfannenstiel through the previous Pfannenstiel incision was made passing through abdominal layers securing hemostasis. Opening peritoneal cavity, the bladder was reflected down anteriorly, thinned lower uterine segment, a low transverse incision was made into the lower segment and we delivered a live male , there seemed to be oligohydramnios and very little fluid, weighing 7 pounds 3 ounces 3269 grams, scores of eight and nine at 1 and [address] Lancaster in attendance for resuscitation of the . The arterial pH was 7.25, base excess was -2.5, venous pH was 7.31 and base excess was -4.5. The placenta was manually removed, three-vessels in the cord, membranes and tissues intact, was sent off to pathology under separate cover. With the uterus contracted well under Pitocin, the lower segment was oversewn in the usual fashion in two layers, imbricating the second layer and then reperitonealization was performed. With instrument and pad counts correct, both ovaries and tubes appeared to be normal, the uterus contracted well down with Pitocin, and then the abdomen was then closed, a running stitch for the peritoneum, same for the fascia, interrupted for subcu and Dexon to the skin. Marcaine 0.25% 10 mL, spray and Telfa and the patient was sent to recovery in good condition. The baby, a male , had on the right-hand five digits, three middle were webbed together, the thumb was free. On the left side there were five digits with one extra digit and four were webbed. The thumb was free. On the right foot the baby had six digits with an extra small digit, five of them were webbed. The large toe was free. On the left foot there were six digits, four were webbed, and the extra digit was a little tag on the little toe. Baby was evaluated by Dr. Lancaster and found to be in good health and was kept with the mother and the father. With instrument and pad counts correct, the patient was then sent to recovery in good condition after waking up from general anesthetic.
--- NOTE | 2019-05-11 07:15 | IPNPDOC ---
Text Note Date of Service The patient was seen on 05/11/19. NOTE OB Considerations: Advanced Maternal Age IVF GDMA2 on insulin HSV+ Pre-eclampsia without severe features Ms. [place] is a 38y/o POD#3 s/p RLTCS at 2200 on [id number] at 35+6 wks. Patient was previously diagnosed with pre-eclampsia without severe features based on mild range BPs P:C ratio of 0.4. Upon presentation to L&D, she was in labor with intermittent severe range BPs, not requiring antihypertensives. She denied CRAWFORD/visual changes or RUQ pain. She also had a right eye hemorrhage. Given her labor in the setting of prior , she was admitted and underwent uncomplicated RLTCS. This morning, she is doing well and without complaints. She reports pain is well controlled, she is ambulating without lightheadedness, lochia is diminishing and she is tolerating regular diet. She denies visual changes/RUQ pain. Reports intermittent mild headache. PE: VS reviewed. BPs mild range, systolics 140s. Non tachycardic, afebrile. General - Alert and oriented x3 HEENT - popped blood vessel in right eye Resp - Non labored breathing CV - well perfused Abd - Soft, NT/ND, U-2. Incision clean, dry, intact Ext - No edema, erythema or calf tenderness HCT: 33.3 -> 29.5 A/p: 38y/o POD#3 s/p RLTCS @ 35+6 wks with pre-eclampsia without severe features -Blood pressures reviewed: no indication to initiate antihypertension medication at this time. -Encourage hydration, ambulation, breast feeding, IS use -GDMA2 - will need 2 hour glucose test at 6 weeks -Support breast feeding -Opos, Rubella immune -Contraception: Patient unsure, IVF . Discussed possibility of spontaneous even in the setting of infertility. Considering IUD. VS,Fishbone, I+O VS, Fishbone, I+O Vital Signs Date Time Temp Pulse Resp B/P (MAP) Pulse Ox O2 Delivery O2 Flow Rate FiO2 05/11/19 06:08 98.5 71 16 150/65 (93) 05/09/19 05:36 95 05/09/19 01:00 1.0 Rosy Gottlieb MD May 11, 2019 07:15
--- NOTE | 2019-05-11 07:58 | OBDS ---
[facility] Obstetrical Discharge Sum. Obstetrical Discharge Summary [facility] Director/Provider: Rosy Gottlieb MD Date: May 11, 2019 Time: 07:54 : 3 Term: 1 Pre-term: 2 Abortions: 1 Livin VDRL: Non-Reactive Rh: Positive Rubella: Immune Labor Patient was admitted at 35+6 wks in labor in the setting of pre- eclampsia without severe features. Delivery Patient delivered via elective repeat section. Surgery was uncomplicated. She had an uncomplicated course. Her BPs remained mild range and she did not require antihypertensive therapy. Infant Sex: Male Infant Weight: pounds (7), ounces (3), grams (3269) Anesthesia: General Anesthesia Episiotomy n/A A/P, Post Course List any complications Admission diagnosis: Labor, Pre-eclampsia without severe features, GMDA2 Discharge diagnosis: Single live , Pre-eclampsia without severe features Condition at Discharge: Stable Discharge Instructions: Home Activity: As tolerated. No lifting > 20 lbs. Pelvic rest x6 weeks. Diet: Regular Medications: Patient has Percocet prescription, and remainder of medication given to patient. Follow-up: 2-3 day BP check, 2 week incision check, 6 week visit. Other: Considering IUD for contraception. Declines bridging. Rosy Gottlieb MD May 11, 2019 07:58
[2019-05-11] MEDS ORDERED: COLA100C5 PO (08:02)
[2019-05-11] MEDS ORDERED: PERCOCET PO (08:02)
[2019-05-11] MEDS ORDERED: IBUP80TA PO (08:02)
[2019-05-11] MEDS ORDERED: ACET-683 PO (08:02)
== END 2019-05-11 10:55 | disposition home or self-care (01) | DRG 771 ==
LOC: M LDO 14:39 → M LDI 15:53 → M OBS 05-09 00:16
PROVIDERS: ADMIT Obstetrics & Gynecology; ATTEND Obstetrics & Gynecology
PROC: 10D00Z1 Extraction of Products of Conception, Low, Open Approach (ICD-10-PCS; principal; 2019-05-08 22:45)
DX: O24.424 Gestational diabetes mellitus in childbirth, insulin controlled (principal); O60.14X0 Preterm labor third trimester with preterm delivery third trimester, not applicable or unspecified; O14.93 Unspecified pre-eclampsia, third trimester; O98.52 Other viral diseases complicating childbirth; Z37.0 Single live birth; Z3A.35 35 weeks gestation of pregnancy; O34.211 Maternal care for low transverse scar from previous cesarean delivery; B00.9 Herpesviral infection, unspecified; O09.523 Supervision of elderly multigravida, third trimester